=== PATIENT | male | born 1950 | race Caucasian/White ===

== ENCOUNTER 2016-07-04 10:39 | Inpatient (IN) | payer MEDICAID ==
--- NOTE | 2016-07-04 11:11 | EDPHY ---
H & P Stated Complaint: Sent from w/ ?cellulitis R cheek x 2wks - Personal History Current Tetanus Diphtheria and Acellular Pertussis (TDAP): Yes - Medical/Surgical History Hx Asthma: No Hx Chronic Respiratory Disease: No Hx Diabetes: No Hx Cardiac Disease: Yes Hx Renal Disease: No Hx Cirrhosis: No Hx Alcoholism: No Hx HIV/AIDS: No Hx Splenectomy or Spleen Trauma: No Other PMH: HTN, ortho surgeries - Social History Smoking Status: Heavy smoker Time Seen by Provider: 07/04/16 10:56 HPI/ROS: CHIEF COMPLAINT: Progressive right facial and orbital swelling HISTORY OF PRESENT ILLNESS: 65-year-old immunocompetent male with up-to-date tetanus was seen [facility] this morning for evaluation of progressive right periorbital erythema, induration, pain with extraocular movements, for the past 2 weeks. he has remote history of right facial bone ORIF secondary to skateboarding accident. Referred to the emergency department for further evaluation of of possible orbital cellulitis and likely admission. No corrective lens use history. Self-described baseline "poor vision". He denies : Trauma, fever, chills, nuchal rigidity, chest pain, dyspnea, flu-like symptoms, myalgias. No history of chronic/recurrent skin infection PRIMARY CARE PROVIDER: [facility] REVIEW OF SYSTEMS: A ten point review of systems was performed and is negative with the exception of the items mentioned in the HPI PAST MEDICAL & SURGICAL HISTORY: right facial bone ORIF 3 years ago [facility]. Hypertension. Hepatitis-C. Alcoholism. Tetanus up-to-date SOCIAL HISTORY:daily smoker PHYSICAL EXAM (Prior to examination, patient consented to physical exam, hands were washed and my usual and customary physical exam procedures followed) 1) GENERAL: , alert and oriented. Nontoxic-appearing . 2) HEAD: Normocephalic, atraumatic 3) HEENT: Pupils equal, round, reactive to light bilaterally. Right periorbital edema, erythema, induration noted with dried discharge. No proptosis. Positive pain with extraocular movements. No dysconjugate gaze . No facial crepitus. Right periorbital and right cheek erythema, induration, edema noted. Nasopharynx, oropharynx, clear, no lesions. Poor dentition. Tender to palpation right cheek. Ears bilaterally with normal tympanic membranes. 4) NECK: Full range of motion, no meningeal signs. 5) LUNGS: Clear auscultation bilaterally, no wheezes, no rhonchi, no retractions. 6) HEART: Regular rate and rhythm, no murmur, no heave, no gallop. 7) ABDOMEN: No guarding, no rebound, no focal tenderness, 8) MUSCULOSKELETAL: No peripheral edema or discoloration. 9) BACK: No CVA tenderness. 10) SKIN: No rash, no petechiae. 11) Psychiatric: Patient is oriented X 3, there is no agitation. DIFFERENTIAL DIAGNOSIS: in no particular include but limited to facial cellulitis, orbital cellulitis, periorbital cellulitis, abscess, necrotizing fasciitis (Haritha Greenberg) Constitutional: Initial Vital Signs Temperature (C) 36.4 C 07/04/16 10:41 Heart Rate 125 H 07/04/16 10:41 Respiratory Rate 18 07/04/16 10:41 Blood Pressure 128/93 H 07/04/16 10:41 O2 Sat (%) 96 07/04/16 10:41 O2 Delivery Mode Room Air Allergies/Adverse Reactions: No Known Allergies Allergy (Verified 07/04/16 10:41) Home Medications: Medication Instructions Recorded 2 Blood Pressure Meds ?Names 07/04/16 Medical Decision Making ED Course/Re-evaluation: 11:11 a.m.: Discussed case Dr. Valentin Alexander in the ER. Will obtain imaging studies and plan for likely admission 12:45 p.m.: Phone consultation with ENT Dr. Amy Higuera will consult and will plan on taking patient to the operating room this afternoon 12:55 p.m.: Phone consultation with hospitalist Kirsten, admit to Dr. Yaron Esqueda (Haritha Greenberg) I did not see this patient while he was in the emergency department. However his care was discussed with the PA while the patient was in the department. I agree with treatment plan and management (Valentin Alexander) - Data Points Laboratory Results: Laboratory Results 07/04/16 11:00 07/04/16 11:00 07/04/16 07/04/16 07/04/16 11:25 11:19 11:00 WBC RBC Hgb POC Hgb 15.6 gm/dL gm/dL (14.5-17.3) Hct POC Hct 46 % % (42.8-50.6) MCV MCH MCHC RDW Plt Count MPV Neut % (Auto) Lymph % (Auto) [place] % (Auto) Eos % (Auto) Baso % (Auto) Nucleat RBC Rel Count Absolute Neuts (auto) Absolute Lymphs (auto) Absolute Monos (auto) Absolute Eos (auto) Absolute Basos (auto) Absolute Nucleated RBC Immature Gran % Immature Gran # PT 13.8 SEC SEC (12.0-15.0) INR 1.07 (0.83-1.16) APTT 29.8 SEC SEC (23.0-38.0) VBG Lactic Acid 1.9 mmol/L mmol/L (0.7-2.1) POC Sodium 138 mEq/L mEq/L (134-144) Sodium POC Potassium 6.2 mEq/L H mEq/L (3.3-5.0) Potassium POC Chloride 101 mEq/L mEq/L (96-108) Chloride Carbon Dioxide Anion Gap POC BUN 26 mg/dL H mg/dL (7-23) BUN Creatinine POC Creatinine 0.8 mg/dL mg/dL (0.8-1.5) Estimated GFR Glucose POC Glucose 113 mg/dL H mg/dL (70-100) Calcium Total Bilirubin 07/04/16 07/04/16 11:00 11:00 WBC 14.08 10^3/uL H 10^3/uL (3.80-9.50) RBC 4.98 10^6/uL 10^6/uL (4.40-6.38) Hgb 16.4 g/dL g/dL (13.7-17.5) POC Hgb Hct 47.8 % % (40.0-51.0) POC Hct MCV 96.0 fL fL (81.5-99.8) MCH 32.9 pg pg (27.9-34.1) MCHC 34.3 g/dL g/dL (32.4-36.7) RDW 14.7 % % (11.5-15.2) Plt Count 267 10^3/uL 10^3/uL (150-400) MPV 9.5 fL fL (8.7-11.7) Neut % (Auto) 85.0 % H % (39.3-74.2) Lymph % (Auto) 7.9 % L % (15.0-45.0) [place] % (Auto) 6.3 % % (4.5-13.0) Eos % (Auto) 0.0 % L % (0.6-7.6) Baso % (Auto) 0.3 % % (0.3-1.7) Nucleat RBC Rel Count 0.0 % % (0.0-0.2) Absolute Neuts (auto) 11.98 10^3/uL H 10^3/uL (1.70-6.50) Absolute Lymphs (auto) 1.11 10^3/uL 10^3/uL (1.00-3.00) Absolute Monos (auto) 0.88 10^3/uL H 10^3/uL (0.30-0.80) Absolute Eos (auto) 0.00 10^3/uL L 10^3/uL (0.03-0.40) Absolute Basos (auto) 0.04 10^3/uL 10^3/uL (0.02-0.10) Absolute Nucleated RBC 0.00 10^3/uL 10^3/uL (0-0.01) Immature Gran % 0.5 % % (0.0-1.1) Immature Gran # 0.07 10^3/uL 10^3/uL (0.00-0.10) PT INR APTT VBG Lactic Acid POC Sodium Sodium 143 mEq/L mEq/L (134-144) POC Potassium Potassium 4.2 mEq/L mEq/L (3.5-5.2) POC Chloride Chloride 102 mEq/L mEq/L (97-110) Carbon Dioxide 22 mEq/l mEq/l (22-31) Anion Gap 19 mEq/L H mEq/L (8-16) POC BUN BUN 17 mg/dL mg/dL (7-23) Creatinine 0.9 mg/dL mg/dL (0.7-1.3) POC Creatinine Estimated GFR > 60 Glucose 116 mg/dL H mg/dL (70-100) POC Glucose Calcium 9.8 mg/dL mg/dL (8.5-10.4) Total Bilirubin 1.5 mg/dL H mg/dL (0.1-1.4) Medications Given: Discontinued Medications Vancomycin/Sodium Chloride (Vancomycin 1 Gm (Premix)) 250 mls @ 250 mls/hr IV EDNOW ONE PRN Reason: Protocol Stop: 07/04/16 12:04 Last Admin: 07/04/16 11:35 Dose: 250 mls Ampicillin Sodium/Sulbactam (Sodium 3 gm/ Sodium Chloride) 100 mls @ 200 mls/ hr IV EDNOW ONE PRN Reason: Protocol Stop: 07/04/16 13:32 Last Admin: 07/04/16 13:22 Dose: 100 mls Sodium Chloride (Ns *For Sepsis Order Set Only*) 1,905 ml 30 ml/kg (1905 ml) IV EDNOW ONE Stop: 07/04/16 11:19 Last Admin: 07/04/16 11:35 Dose: 1,905 ml Point of Care Test Results: 07/04/16 11:19 POC Sodium 138 POC Potassium 6.2 H POC Chloride 101 POC BUN 26 H POC Creatinine 0.8 POC Glucose 113 H Departure - Departure Disposition: [facility] Acute Clinical Impression: Right facial cellulitis, Multiple facial abscess Condition: Fair
[2016-07-04 11:16] LABS: % IMMATURE GRANULYOCYTES 0.5 % (0.0-1.1); ABSOLUTE IMMATURE GRANULOCYTES 0.07 10^3/uL (0.00-0.10); ADD DIFF? NO; ADD MORPH? NO; ADD SCAN? NO; ATYPICAL LYMPHOCYTE FLAG 10 (0-99); FRAGMENT RBC FLAG 0 (0-99); HEMATOCRIT 47.8 % (40.0-51.0); HEMOGLOBIN 16.4 g/dL (13.7-17.5); LEFT SHIFT FLG 10 (0-99); LIPEMIA HEMOLYSIS FLAG 90 (0-99); MEAN CELL HEMOGLOBIN 32.9 pg (27.9-34.1); MEAN CELL HEMOGLOBIN CONCENTR. 34.3 g/dL (32.4-36.7); MEAN PLATELET VOLUME 9.5 fL (8.7-11.7); PLATELET CLUMPS FLAG 20 (0-99); PLATELET COUNT 267 10^3/uL (150-400); RED BLOOD CELL COUNT 4.98 10^6/uL (4.40-6.38); RED CELL DISTRIBUTION WIDTH 14.7 % (11.5-15.2)
[2016-07-04] MEDS: VANCOMYCIN HCL/NORMAL SALINE 250 ML IV ONE ×2 (11:17→11:35)
[2016-07-04] MEDS ORDERED: NS 1,000 ML BAG *FOR SEPSIS ORDER SET ONLY IV ONE (11:18)
[2016-07-04 11:25] LABS: ANION GAP 19 mEq/L (8-16); CALCIUM 9.8 mg/dL (8.5-10.4); CARBON DIOXIDE 22 mEq/l (22-31); CHLORIDE 102 mEq/L (97-110); CREATININE 0.9 mg/dL (0.7-1.3); GLOMERULAR FILTRATION RATE > 60; GLUCOSE 116 mg/dL (70-100); POTASSIUM 4.2 mEq/L (3.5-5.2); SODIUM 143 mEq/L (134-144)
[2016-07-04 11:27] LABS: APTT 29.8 SEC (23.0-38.0); INR 1.07 (0.83-1.16); PROTIME(PATIENT) 13.8 SEC (12.0-15.0)
[2016-07-04] MEDS ORDERED: IOPAMIDOL (ISOVUE-300) 100 ML BTL IV ONE (11:46)
[2016-07-04 11:55] LABS: BILIRUBIN,TOTAL 1.5 mg/dL (0.1-1.4)
[2016-07-04] MEDS ORDERED: AMPICILLIN/SULBACTAM 3 GM in NS 100 ML IV ONE (13:03)
[2016-07-04] MEDS ORDERED: ZOLPIDEM TARTRATE 5 MG TAB PO PRN (13:45)
[2016-07-04] MEDS ORDERED: ONDANSETRON 4 MG/2 ML VIAL IVP PRN (13:45)
[2016-07-04] MEDS ORDERED: ACETAMINOPHEN 325 MG TAB PO PRN (13:45)
--- NOTE | 2016-07-04 14:11 | GCON ---
[f rep st] CONSULTATION DATE OF CONSULTATION: 07/04/2016 CHIEF COMPLAINT: Facial swelling. HISTORY OF PRESENT ILLNESS: This is a 65-year-old man with a 2-week history of right-sided facial swelling that has progressively gotten worse and more painful. He was seen at [facility] today, and they referred him over to the ER for a possible abscess. A CT scan was done, which showed a large right-sided facial abscess that centered around some prior hardware that was done for what looks like a ZMC fracture in the past, and I was called for a consultation. The patient states that he has not had anything to eat or drink since last night. He has had increasing pain for 2 weeks, where it really got bad in the past 2 days. He has had no obvious fevers. He does complain that it hurts when he opens his mouth and it hurts when he chews. He states that the hardware was placed a couple years ago at [facility] after he fell off a skateboard and had some facial fractures. He denies any vision changes, diplopia, or blurry vision at this point. He denies any shortness of breath or dysphagia. He does complain of right-sided facial pain, and he does complain of some pain with extraocular movements, especially on the right side. He does describe at baseline he has poor vision. He denies any new trauma, fevers, neck stiffness, chest pain, myalgias, or other problems. PAST MEDICAL HISTORY: Significant for high blood pressure, hepatitis C, and alcoholism. SOCIAL HISTORY: He is a daily smoker, 1 pack per day. REVIEW OF SYSTEMS: Positive for the above and negative for the other things noted in the review of systems. PHYSICAL EXAM: GENERAL: He is awake, alert, in no apparent distress. VITAL SIGNS: Stable, afebrile. HEENT: Ear canals are normal with no obstruction. TMs are intact. No middle ear effusion. FACE: Right side of the face is significantly swollen, tender, and indurated. He does have some significant swelling and exquisite tenderness with opening the mouth and palpation of the gingivobuccal sulcus in this region. He does have poor dentition mandible, no maxillary dentition. Tongue is mobile and midline. Palate elevates symmetrically. Oropharynx is clear. Mandible feels stable with no significant pain or swelling on palpation. Neck shows no overt lymphadenopathy or masses. Pupils are equal, round, and reactive to light. Extraocular movements are intact RESP: Breathing without any difficulty, no distress, and he is not on oxygen. clinic office coordinator 2-12 grossly intact LABORATORY AND X-RAY FINDINGS: CT scan was reviewed, and this shows a very large facial abscess on the right side, at least 4 cm in width that is centered around some facial hardware around the ZM complex. He also has a completely opacified right maxillary sinus with edema and fluid filling this area, as well as some anterior ethmoid cells that are opacified as well. Labs show a white count of 14. Platelets are stable and normal. PT and INR are normal. ASSESSMENT/PLAN: This is a patient with previous ORIF of a right ZMC fracture with an abscess now likely from the hardware. I discussed with him that he needs an I and D of this area and this would be easiest to do in the operating room so we can wash it out aggressively. I will be taking him to the OR now. I will possibly remove the hardward as well vs. waiting until infection clears. I'll have to see what it looks like intraoperatively. He has already gotten some vancomycin, and I would like to also add Unasyn as well. The risks of the procedure and informed consent was obtainened. He agrees and understands and is happy with the plan. /[id number]/MODL MTDD
[2016-07-04] MEDS ORDERED: MIDAZOLAM 2 MG/2 ML VIAL ONE (14:22)
[2016-07-04] MEDS ORDERED: PROPOFOL 200 MG/20 ML VIAL ONE (14:24)
[2016-07-04] MEDS ORDERED: LIDOCAINE 2% 5 ML SDV ONE (14:24)
[2016-07-04] MEDS ORDERED: fentaNYL 100 MCG/2 ML INJ ONE ×4 (14:24→15:51)
[2016-07-04] MEDS ORDERED: DEXAMETHASONE 4 MG/ML VIAL ONE (14:24)
[2016-07-04] MEDS ORDERED: ROCURONIUM 50 MG/5 ML VIAL ONE (14:25)
[2016-07-04] MEDS ORDERED: SUCCINYLCHOLINE CHLORIDE*ANESTHESIA ONLY*200 MG/10 ML SYR IVP ONE (14:25)
[2016-07-04] MEDS ORDERED: LIDO/EPI 1% **for epidural** 30 ML SDV ONE (14:49)
[2016-07-04] MEDS ORDERED: LIDO/EPI 1% **Not for Epidural 20 ML MDV ONE (14:50)
[2016-07-04] MEDS ORDERED: PHENYLEPHRINE HCL 100 MCG/ML SYR ONE (14:51)
[2016-07-04] MEDS ORDERED: METOPROLOL TARTRATE 5 MG/5 ML INJ ONE (15:04)
--- NOTE | 2016-07-04 15:42 | POSTOPPROG ---
Post Op Note Date of Operation: 07/04/16 Surgeon: Amy Higuera Anesthesiologist: isai campbell Anesthesia: GET(General Endotracheal) Pre-op Diagnosis: R facial abscess, previous ORIF Post-op Diagnosis: r facial abscess, loose hardware Procedure: I&D R facial abscess, removal of ZMC hardware Findings: large abscess pocket, ~ 20 cc pus, loose hardware, 4 screws, 1 plate remove Inf/Abcess present in the surg proc area at time of surgery?: Yes Depth: Deep Incisional (Fascial) EBL: Minimal Complications: none apparent Specimen(s): cx taken
--- NOTE | 2016-07-04 16:28 | PDGENHP ---
History and Physical History and Physical: HISTORY AND PHYSICAL CC: Right facial pain and swelling HISTORY: This patient was sent in from the [facility] due to concern for right facial abscess. He complains of 2-3 days of increasing swelling and pain over the right maxillary area and pain with movement of his eyes. He has no decrease in vision. He has no fevers. There is pain when he chews orders swallows food. He does describe some shivering. A CT scan was done in the ER. The patient does give a history of having facial injury with a right zygomatic fracture 2 years ago resulting in placement of hardware at [facility]. Until now he has had no problems related to that injury and surgery. The CT scan today does show evidence of significant abscess in the deep soft tissue planes but no definite osteomyelitis. The hardware is adjacent to the abscess cavity. There is evidence of loosening. Patient has now been taken to the operating room by Dr. Mccoy and he has had incision and drainage with removal of 20 cc of purulent material as well as removal of 4 screws and a plate. I am seeing the patient in the post anesthesia recovery room. He is now awake. He has some complain still of pain. Has no nausea, shortness of breath, angina, palpitations, neurologic symptoms are other abnormalities. Importantly the patient states that he still drinks alcohol heavily and currently was drinking 750 mL of liquor per day though stopped 2 or 3 days ago due to pain with drinking this. ROS: A comprehensive 10 system review revealed no other significant findings PAST MEDICAL HISTORY: Alcoholism Cavitary pneumonia Hepatitis-C, chronic FAMILY MEDICAL HISTORY: A mother and sister in a house fire. Father still alive. SOCIAL HISTORY: Continued heavy alcohol use, continued tobacco use, no street drugs or marijuana MEDICATIONS: The patients list has not yet been reconciled by our clinical pharmacist in the EMR. PHYSICAL EXAMINATION: Vital Signs: Some hypertension in the operating room and initially in PACU, otherwise stable without fever Roll Icer: Sinus rhythm Examination: General: alert, oriented, good mentation, relaxed Skin: warm, dry, good color, no rash HEENT: Dressing over his surgical site, otherwise normal Neck: no mass or jvd Resps: relaxed Lungs: Severely diminished but clear breath sounds Heart: regular, no murmur Abdomen: soft, nondistended, nontender, +BS, no mass Upper Extremities: normal Lower Extremities: no edema, warm No Bleeding or bruising Neurologic: normal speech/language, normal corporate buyer, no focal weakness, no tremor IV site: looks normal LABORATORY DATA: White blood cell count elevated 14,000 Anion gap elevated at 19 but does not have an elevated lactate other laboratory data stable RADIOLOGY STUDIES: CT scan of facial structures shows obvious large abscess in the right pre maxillary facial area with old hardware present over the zygoma ASSESSMENT: -deep facial abscess involving infection of hardware from previous zygomatic fracture, now status post incision and drainage and removal of hardware -chronic alcoholism with high risk of withdrawal -suspect COPD, stable PLANS: -admission to hospital -await culture results -continue empiric antibiotics which were started in the ER -wound care per ENT -CIWA protocol -DVT prophylaxis I have reviewed the patient's case in detail with Dr. Valentin Alexander I have reviewed the patient's past medical records as part of this assessment, including records from previous hospital admissions here
[2016-07-04] MEDS ORDERED: SODIUM CL NASAL 45 ML BTL EACHNARE PRN (16:43)
--- NOTE | 2016-07-04 16:43 | SOAPPROG ---
SOAP Progress Note Assessment/Plan: Assessment: PO R I&D facial abscess and hardware removal. Had opacification of R max sinus as well and purulence draining into RESIDENT CARE ASSOCIATE. Rec IV abx, Unasyn and Vanc, vs. Clinda. Could consider talking with ID as well. Cx taken. Continue broad spectrum abx until cultured out. Will start saline mist in nose and nasal steroid spray. Call with questions Plan: 07/04/16 16:41 Subjective: Less pain and swelling over R cheek po. distillery worker general Objective: avfss no sig bleeding, less ttp over cheek still swollen, no evidence of hematoma Vital Signs Temp Pulse Resp BP Pulse Ox 37.5 C 88 18 145/99 H 95 07/04/16 12:59 07/04/16 13:30 07/04/16 13:30 07/04/16 13:30 07/04/16 13:30 07/03/16 07/04/16 07/05/16 05:59 05:59 05:59 Intake Total 700 Balance 700 PT 13.8 SEC (12.0-15.0) 07/04/16 11:00 INR 1.07 (0.83-1.16) 07/04/16 11:00 ICD10 Worksheet Patient Problems: Problems Problem Status Onset Aspiration pneumonia of both lungs Acute Empyema of right pleural space Acute Pneumonia Acute
[2016-07-04] MEDS ORDERED: LORazepam 2 MG/ML INJ IVP ONE (17:30)
[2016-07-04] MEDS ORDERED: LORazepam 2 MG/ML INJ IVP PRN (17:30)
[2016-07-04] MEDS ORDERED: LORazepam 1 MG TAB PO ONE (17:30)
[2016-07-04] MEDS ORDERED: OXYCODONE/APAP 5/325 TAB PO PRN (17:32)
[2016-07-04] MEDS: NS 1,000 ML IV SCH (18:16)
[2016-07-04] MEDS: FLUTICASONE NASAL 120 SPRAYS/16 GM MDI EACHNARE SCH (18:17)
[2016-07-04] MEDS: LISINOPRIL 40 MG TAB PO SCH (18:17)
[2016-07-04] MEDS: LORazepam 1 MG TAB PO PRN (21:00)
[2016-07-04] MEDS: CHLORHEXIDINE GLUCONATE 15 ML UDL PO SCH (21:34)
[2016-07-05] MEDS: CHLORHEXIDINE GLUCONATE 15 ML UDL PO SCH ×4 (03:55→23:06)
[2016-07-05 05:38] LABS: % IMMATURE GRANULYOCYTES 0.6 % (0.0-1.1); ABSOLUTE IMMATURE GRANULOCYTES 0.06 10^3/uL (0.00-0.10); HEMATOCRIT 38.2 % (40.0-51.0); HEMOGLOBIN 12.9 g/dL (13.7-17.5); MEAN CELL HEMOGLOBIN CONCENTR. 33.8 g/dL (32.4-36.7); MEAN CELL VOLUME 97.7 fL (81.5-99.8); PLATELET COUNT 206 10^3/uL (150-400); RED BLOOD CELL COUNT 3.91 10^6/uL (4.40-6.38); RED CELL DISTRIBUTION WIDTH 14.8 % (11.5-15.2)
[2016-07-05 05:39] LABS: ADD DIFF? NO; ADD MORPH? NO; ADD SCAN? NO; ATYPICAL LYMPHOCYTE FLAG 20 (0-99); FRAGMENT RBC FLAG 0 (0-99); LEFT SHIFT FLG 20 (0-99); LIPEMIA HEMOLYSIS FLAG 90 (0-99); PLATELET CLUMPS FLAG 0 (0-99)
[2016-07-05 05:53] LABS: ANION GAP 12 mEq/L (8-16); CALCIUM 8.9 mg/dL (8.5-10.4); CARBON DIOXIDE 22 mEq/l (22-31); CHLORIDE 106 mEq/L (97-110); CREATININE 0.6 mg/dL (0.7-1.3); GLOMERULAR FILTRATION RATE > 60; GLUCOSE 110 mg/dL (70-100); MAGNESIUM 1.7 mg/dL (1.6-2.3); POTASSIUM 4.4 mEq/L (3.5-5.2); SODIUM 140 mEq/L (134-144)
--- NOTE | 2016-07-05 10:34 | HOSPPROG ---
Hospitalist Progress Note Assessment/Plan: #Deep facial abscess with cellulitis: hardware removed. WBC improved with Vanc/ Unasyn. -gram statin with gram + cocci/rods, culture pending -Peridex TID for 2 weeks, nasal spray -soft diet x 2 weeks #Alcohol abuse: cont CIWA #Alcohol abuse: counseled on cessation #Normocytic anemia: no e/o bleeding #Leukocytosis: improved with IV abx #Tobacco abuse: nicotine patch #Diet: full liquid today #Disp: cont IV abx, await culture data # Subjective: pain in right face improved Objective: Vital Signs Temp Pulse Resp BP Pulse Ox 36.6 C 75 18 136/86 H 95 07/05/16 08:06 07/05/16 08:06 07/05/16 08:06 07/05/16 08:06 07/05/16 08:06 Microbiology 07/04/16 15:05 Gram Stain - Final Head - Eswab Laboratory Results 07/05/16 04:37 07/05/16 04:37 07/04/16 07/05/16 07/06/16 05:59 05:59 05:59 Intake Total 2857 Output Total 25 Balance 2832 PT 13.8 SEC (12.0-15.0) 07/04/16 11:00 INR 1.07 (0.83-1.16) 07/04/16 11:00 - Physical Exam Constitutional: no apparent distress Eyes: PERRL Ears, Nose, Mouth, Throat: other (right cheek swelling/erythema, mild TTP. No cervical LAD. Buccal incision intact) Cardiovascular: regular rate and rhythym Respiratory: no respiratory distress Gastrointestinal: normoactive bowel sounds, soft, non-tender abdomen Genitourinary: no bladder fullness Skin: warm Musculoskeletal: full muscle strength Neurologic: AAOx3, CN II-XII Intact, other (mild tongue fasciculation) ICD10 Worksheet Patient Problems: Problems Problem Status Onset Aspiration pneumonia of both lungs Acute Empyema of right pleural space Acute Pneumonia Acute
--- NOTE | 2016-07-05 11:13 | SOAPPROG ---
SOAP Progress Note Assessment/Plan: Assessment: POD 1 I&D R facial abscess with removal of hardware. Looks good, improved. Can start FLD to soft diet. needs to stay on soft diet x 2 weeks. Needs to continue peridex TID for 2 weeks. Continue broad spectrum IV abx for another 24 hrs or so or until speciates out, likely can dc from my standpoint tomorrow if still improving. continue nasal sprays as an outpatient. WBC down to 9 from 14. Call with questions. He can f/u with me in the office in 2 weeks. 07/04/16 16:41 07/05/16 11:09 07/05/16 11:12 Subjective: Pt doing much better. Less pain and swelling. hasn't really started eating. No sig purulence draining that he can tell Gram stain showing 4+ g + cocci and 1+ g+ rods Objective: AFVSS RA improved redness and swelling over R cheek/zygoma. minimal TTP Incision in R gingivobuccal sulcus intact, minimal bloody ooze from it OP patent Vital Signs Temp Pulse Resp BP Pulse Ox 36.6 C 75 18 136/86 H 95 07/05/16 08:06 07/05/16 08:06 07/05/16 08:06 07/05/16 08:06 07/05/16 08:06 Microbiology 07/04/16 15:05 Gram Stain - Final Head - Eswab Laboratory Results 07/05/16 04:37 07/05/16 04:37 07/04/16 07/05/16 07/06/16 05:59 05:59 05:59 Intake Total 2857 Output Total 25 Balance 2832 PT 13.8 SEC (12.0-15.0) 07/04/16 11:00 INR 1.07 (0.83-1.16) 07/04/16 11:00 ICD10 Worksheet Patient Problems: Problems Problem Status Onset Aspiration pneumonia of both lungs Acute Empyema of right pleural space Acute Pneumonia Acute
[2016-07-05] MEDS: MULTIVITAMINS 1 EACH TAB PO SCH (11:29)
[2016-07-05] MEDS: LISINOPRIL 40 MG TAB PO SCH (11:30)
[2016-07-05] MEDS: NS 1,000 ML IV SCH (12:49)
[2016-07-05] MEDS: ENOXAPARIN 40 MG/0.4 ML SYR SC SCH (12:49)
[2016-07-05] MEDS: NICOTINE 21 MG/24 HR PATCH TD SCH (14:09)
[2016-07-05] MEDS: AMPICILLIN/SULBACTAM 3 GM in NS 100 ML IV SCH ×3 (15:48→23:06)
[2016-07-05] MEDS: VANCOMYCIN HCL/NORMAL SALINE 250 ML IV SCH (16:30)
[2016-07-05] MEDS: FLUTICASONE NASAL 120 SPRAYS/16 GM MDI EACHNARE SCH (16:57)
[2016-07-05] MEDS: LORazepam 1 MG TAB PO PRN (23:06)
[2016-07-06] MEDS: VANCOMYCIN HCL/NORMAL SALINE 250 ML IV SCH (02:51)
[2016-07-06 05:28] LABS: ANION GAP 8 mEq/L (8-16); CALCIUM 8.3 mg/dL (8.5-10.4); CARBON DIOXIDE 25 mEq/l (22-31); CHLORIDE 108 mEq/L (97-110); CREATININE 0.5 mg/dL (0.7-1.3); GLOMERULAR FILTRATION RATE > 60; GLUCOSE 91 mg/dL (70-100); MAGNESIUM 1.6 mg/dL (1.6-2.3); POTASSIUM 3.7 mEq/L (3.5-5.2); SODIUM 141 mEq/L (134-144)
[2016-07-06] MEDS: AMPICILLIN/SULBACTAM 3 GM in NS 100 ML IV SCH ×3 (06:06→18:41)
[2016-07-06] MEDS: NS 1,000 ML IV SCH ×2 (06:07→21:33)
--- NOTE | 2016-07-06 08:43 | HOSPPROG ---
Hospitalist Progress Note Assessment/Plan: #Deep facial abscess with cellulitis: due to hardware prior ZMC. s/p I/D and hardware removal 07/04. Cont IV Unasyn. -gram statin with gram + cocci/rods, culture pending -Peridex TID for 2 weeks, nasal spray -soft diet x 2 weeks -spoke with ID and instead of orals, would rec treating like osteo with prolonged IV abx. Patient amendable; had PICC in past. d/w case management for home care #Alcohol abuse: cont CIWA #Alcohol abuse: counseled on cessation #Normocytic anemia: no e/o bleeding #Leukocytosis: improved with IV abx #Tobacco abuse: nicotine patch #Diet: full liquid today #Disp: cont IV abx, await culture data for home therapy # Subjective: pain/swelling improved Objective: Vital Signs Temp Pulse Resp BP Pulse Ox 36.3 C 89 16 153/99 H 95 07/06/16 08:00 07/06/16 08:00 07/06/16 08:00 07/06/16 08:00 07/06/16 08:00 Microbiology 07/04/16 15:05 Gram Stain - Final Head - Eswab Laboratory Results 07/05/16 04:37 07/06/16 04:45 07/05/16 07/06/16 07/07/16 05:59 05:59 05:59 Intake Total 2857 700 1450 Output Total 25 1250 425 Balance 2832 -550 1025 PT 13.8 SEC (12.0-15.0) 07/04/16 11:00 INR 1.07 (0.83-1.16) 07/04/16 11:00 - Physical Exam Constitutional: no apparent distress Eyes: PERRL Ears, Nose, Mouth, Throat: moist mucous membranes, other (right cheek swelling improved. Min TTP. incision intact) Cardiovascular: regular rate and rhythym Respiratory: no respiratory distress Gastrointestinal: normoactive bowel sounds Genitourinary: no bladder fullness Skin: warm Musculoskeletal: full muscle strength Neurologic: AAOx3 ICD10 Worksheet Patient Problems: Problems Problem Status Onset Aspiration pneumonia of both lungs Acute Empyema of right pleural space Acute Pneumonia Acute
[2016-07-06] MEDS: MULTIVITAMINS 1 EACH TAB PO SCH (10:06)
[2016-07-06] MEDS: CHLORHEXIDINE GLUCONATE 15 ML UDL PO SCH ×3 (10:07→21:29)
[2016-07-06] MEDS: LISINOPRIL 40 MG TAB PO SCH (10:07)
[2016-07-06] MEDS: FLUTICASONE NASAL 120 SPRAYS/16 GM MDI EACHNARE SCH (10:08)
[2016-07-06] MEDS: ENOXAPARIN 40 MG/0.4 ML SYR SC SCH (10:08)
[2016-07-06] MEDS: NICOTINE 21 MG/24 HR PATCH TD SCH (10:09)
--- NOTE | 2016-07-06 12:32 | GOP ---
[f rep st] OPERATIVE REPORT DATE OF OPERATION: 07/04/2016 SURGEON: Amy Higuera MD ANESTHESIA: General. PREOPERATIVE DIAGNOSIS: 1. Right facial abscess. 2. History of previous zygomaticomaxillary complex fracture and repair on the right. 3. Loose hardware. POSTOPERATIVE DIAGNOSIS: 1. Right facial abscess. 2. History of previous zygomaticomaxillary complex fracture and repair on the right. 3. Loose hardware. PROCEDURE PERFORMED: 1. Incision and drainage of right facial abscess. 2. Removal of right ZMC hardware. FINDINGS: The patient is found have a very large abscess pocket overlying the zygoma and maxilla. This was drained of about 20 cc of acute purulent material , and cultures were taken. I was able to see the inferior screw in the bottom part of the plate on this area. The screws noted to be loose, and it was felt that the hardware needed to be removed, as this was likely the source of the infection. ESTIMATED BLOOD LOSS: Minimal. DESCRIPTION OF PROCEDURE: The patient was first seen in the preoperative area. Informed consent was obtained. He was then brought back to the operating room , where Anesthesia sedated and intubated him. The bed was turned 90 degrees. He was prepped and draped in a normal fashion. Peridex was used to clean the oral cavity out copiously, and then cleared. At this point, he had significant fullness and fluctuance just over the cheek on the right and on the undersurface of the upper lip. At this point, a right gingival buccal incision was made with about a 2 mm cuff of tissue to be able to suture closed. This was taken down through the mucosa, muscular, and then down directly onto the bone. A curved hemostat was used to probe this pocket with significant amount of purulence that was expressed. Cultures were taken x2. The wound incision was widened a little bit, and my finger was able to be used to probe the pocket and break up any loculations. After the majority of the purulence was removed, a significant amount of saline was used to irrigate out the pocket copiously. At this point, I was able to visualize the inferior portion of the ZMC complex plate, as well as the screw. The screw was noted to be somewhat loose, and since this was felt to be the source of the infection, it was felt that the hardware needed to be removed. So, at this point, the periosteum was elevated off of the underlying bone, and gentle retraction was used to be able to visualize the top part of the plate, which was a Y-shaped plate coming from the zygoma down onto the maxilla. A screwdriver was used to remove the inferior 2 screws. These were sent off the field. The same thing was used to remove the 2 screws in the Y confirmation up on the zygoma. These were removed without difficulty, and sent off to field, and then the plate was removed without difficulty. The underlying bone was noted to be intact. The wound was copiously irrigated out again with normal saline. Then once I was confident that there was no more purulence or significant bleeding, the gingivobuccal incision was loosely sutured back into place using a 3-0 Vicryl in an interrupted fashion. Once this was done, Peridex was used again to irrigate out the oral cavity and clean the wound. This was suctioned clear. The patient was turned back over to Anesthesia, where he was awoke and extubated, and taken to PACU in stable condition. There were no complications, and he tolerated the procedure well. SURGEON: Amy Higuera MD. COMPLICATIONS: None. /[id number]/MODL MTDD
[2016-07-06] MEDS ORDERED: ALTEPLASE 2 MG VIAL IVP PRN (14:13)
--- NOTE | 2016-07-06 20:08 | GCON ---
[f rep st] CONSULTATION INFECTIOUS DISEASES CONSULTATION DATE OF CONSULTATION: 07/06/2016 REFERRING PHYSICIAN: Karina Kelley MD SOURCE OF CONSULTATION: REASON FOR CONSULTATION: Right facial abscess status post hardware removal. HISTORY OF PRESENT ILLNESS: The patient is a 65-year-old male with a past medical history of right zygomatic fracture which he states occurred approximately 6 years ago requiring placement of hardwar e who I am asked to see in consultation for right facial abscess with abscess cavity associated with hardware which was removed. The patient described having several days of swelling over the right s nichole of his face which was tender with slight warmth and erythema. This limited his ability to fully open his mouth or eat. He did not have fever but did describe some chills and night sweats. Evalu ation at the time of presentation revealed a right-sided facial abscess and CT scan of the face sugg ested this was in association with his previous hardware. He was taken to the operating room for in cision and drainage of the abscess and found to have approximately 20 mL of purulent material with a ssociated loose hardware in communication with the purulence resulting in his hardware being removed . Cultures from the operative specimen are currently growing Streptococcus intermedius but also yaima wed gram-positive rods on Gram stain. The patient feels significantly improved post incision and dr akhtar. He has been receiving antibiotic therapy with vancomycin and Unasyn with the vancomycin garland ng discontinued earlier today. Given the above findings, I am now asked to assist in his ongoing ma nagement. PAST MEDICAL HISTORY: Peptostreptococcal pneumonia/empyema, history of hepatitis C positive antibod y with negative viral load, alcoholism, tobacco abuse, facial fracture as above. PAST SURGICAL HISTORY: Lumbar spine surgery, facial fracture fixation as above. CURRENT MEDICATIONS: Unasyn 3 g IV q.6 hours, Norvasc 10 mg p.o. daily, Peridex 15 mL p.o. t.i.d., Lovenox 40 mg subcu daily, Flonase 2 sprays each nostril daily, lisinopril 40 mg p.o. daily, multivi tamin p.o. daily, Nicoderm CQ 21 mg patch applied daily, thiamin 100 mg p.o. daily. ALLERGIES: No known drug allergies. SOCIAL HISTORY: Patient smokes 1 pack per day. He drinks 750 mL of vodka frequently; no drug use. FAMILY HISTORY: Brother of what is described as endocarditis. REVIEW OF SYSTEMS: Outside of that noted in the HPI, the remainder of 10 system review was unremark able. PHYSICAL EXAMINATION: VITAL SIGNS: Temperature 36.4, heart rate 72, respiratory rate 16, blood pre ssure 128/87, oxygen saturation 98% on room air. GENERAL: Patient is well nourished, well develope d, no acute distress. He appears nontoxic. HEENT: There is no scleral icterus, conjunctival injec tion or conjunctival petechiae. The oropharynx shows few remaining residual teeth which are in poor repair; incision is present intraorally. There is no erythema or tenderness over the right side of the face. The patient has some limitation in range of motion of his jaw but this is improved. The re is no nasal discharge. NECK: Supple without lymphadenopathy or palpable thyromegaly. CHEST: C lear to auscultation bilaterally without adventitious sounds. The respiratory effort is normal. CA RDIOVASCULAR: There is regular rate and rhythm without murmurs, gallops or rubs. ABDOMEN: Soft, n ontender, nondistended. There is no palpable organomegaly. Bowel sounds are present. MUSCULOSKELE CLAUDIA: There is no cyanosis, clubbing or edema. SKIN: There are no stigmata of endocarditis. No ra shes are noted. Skin is warm, dry to touch. NEUROLOGIC: Patient is alert and interacts appropriat enedelia with the examiner. Cranial nerves 2-12 are grossly intact. Sensation is grossly intact. LYMPH ATICS: No cervical or supraclavicular nodes palpable. LABORATORY DATA: White blood cell count 9.7, hematocrit 38.2, platelets 206, neutrophils 87%. Seru m creatinine is 0.5, blood cultures x2 sets are negative. Gram stain of the operative specimen show 4+ gram-positive cocci and 1+ gram-positive rods with growth of 4+ Streptococcus intermedius. CT s can of the face as outlined above which was reviewed and interpreted by me today. IMPRESSION: Right facial abscess with communication to indwelling hardware which has now been drain ed with complete hardware removal: Based on the hardware involvement, this will need to be treated as if osteomyelitis present. Cultures are currently showing growth of Streptococcus intermedius; gr am-positive rods on Gram stain could potentially represent Actinomyces and will require additional f ollowup of cultures. Anticipate a 6-week course of IV antibiotic for the above problem. RECOMMENDATIONS: 1. Agree with continued Unasyn pending further culture data. 2. If no other organisms isolated, likely will transition to ertapenem for outpatient daily adminis tration. 3. Will need case management assistance regarding outpatient IV antibiotic therapy which is complic ated in the setting of ongoing alcoholism. Thank you for this consultation. We will continue to follow the patient with you. /[id number]/MODL
[2016-07-07] MEDS: AMPICILLIN/SULBACTAM 3 GM in NS 100 ML IV SCH ×2 (00:14→04:58)
[2016-07-07] MEDS: LORazepam 1 MG TAB PO PRN (00:20)
[2016-07-07 05:11] LABS: HEMATOCRIT 39.1 % (40.0-51.0); HEMOGLOBIN 13.4 g/dL (13.7-17.5); MEAN CELL HEMOGLOBIN 33.2 pg (27.9-34.1); MEAN CELL HEMOGLOBIN CONCENTR. 34.3 g/dL (32.4-36.7); MEAN CELL VOLUME 96.8 fL (81.5-99.8); RED BLOOD CELL COUNT 4.04 10^6/uL (4.40-6.38); RED CELL DISTRIBUTION WIDTH 14.3 % (11.5-15.2)
[2016-07-07 05:28] LABS: ANION GAP 8 mEq/L (8-16); CALCIUM 8.7 mg/dL (8.5-10.4); CARBON DIOXIDE 26 mEq/l (22-31); CHLORIDE 108 mEq/L (97-110); CREATININE 0.6 mg/dL (0.7-1.3); GLOMERULAR FILTRATION RATE > 60; GLUCOSE 92 mg/dL (70-100); POTASSIUM 4.2 mEq/L (3.5-5.2); SODIUM 142 mEq/L (134-144)
[2016-07-07 08:19] VITALS: RESP 18; TEMP 98.3
[2016-07-07] MEDS ORDERED: THIAMINE HCL 100 MG TAB PO SCH (09:00)
[2016-07-07] MEDS: LISINOPRIL 40 MG TAB PO SCH (09:16)
[2016-07-07] MEDS: CHLORHEXIDINE GLUCONATE 15 ML UDL PO SCH (09:16)
[2016-07-07] MEDS: NICOTINE 21 MG/24 HR PATCH TD SCH (09:16)
[2016-07-07] MEDS: MULTIVITAMINS 1 EACH TAB PO SCH (09:17)
[2016-07-07] MEDS: ENOXAPARIN 40 MG/0.4 ML SYR SC SCH (09:17)
[2016-07-07] MEDS: FLUTICASONE NASAL 120 SPRAYS/16 GM MDI EACHNARE SCH (09:19)
--- NOTE | 2016-07-07 10:36 | PDIAF ---
- Diagnosis Diagnosis: Facial abscess/mandibular hardware infection Code Status: Full Code - Medication Management Discharge Medications: Medications to Continue on Transfer Lisinopril [Zestril 40 mg (*)] 40 mg PO DAILY 07/04/16 [Last Taken 07/03/16] Multivitamins [Multivitamin (*)] 1 each PO DAILY 07/04/16 [Last Taken 07/03/16] amLODIPine BESYLATE [Amlodipine Besylate] 10 mg PO DAILY 07/04/16 [Last Taken ] Chlorhexidine Gluconate [Perisol] 15 ml MM TID #437 mouthwash 07/05/16 [Last Taken Unknown] Sodium Cl Nasal [[place] (*)] 3 spray EACHNARE TID PRN #1 btl 07/05/16 [ Last Taken Unknown] Mathematics Teacher Antibiotics: Ertapenem 1 g IV Q 24 hours Mathematics Teacher Antibiotic Stop Date: 08/15/16 Discharge Medications: Refer to the Discharge Home Medication list for PRN reason. PICC Care - Routine: Yes - Orders Diet Recommendation: other - Labs/Radiology CBC Date: 07/12/16 (Weekly Q ) CMP Date: 07/12/16 (Weekly Q ) Call or Fax Lab and Imaging Results to: Dr. Pascual, - Follow Up Care Current Providers and Referrals: Anthony Patricia MD [Primary Care Provider] - Amy Higuera MD [Medical Doctor] - follow up in 2 weeks
[2016-07-07] MEDS ORDERED: ERTAPENEM 1 GM in NS 100 ML IV SCH (11:00)
--- NOTE | 2016-07-07 12:06 | PDIAF ---
- Diagnosis Diagnosis: Facial abscess/mandibular hardware infection Code Status: Full Code - Medication Management Discharge Medications: Medications to Continue on Transfer Lisinopril [Zestril 40 mg (*)] 40 mg PO DAILY 07/04/16 [Last Taken 07/03/16] Multivitamins [Multivitamin (*)] 1 each PO DAILY 07/04/16 [Last Taken 07/03/16] amLODIPine BESYLATE [Amlodipine Besylate] 10 mg PO DAILY 07/04/16 [Last Taken ] Chlorhexidine Gluconate [Perisol] 15 ml MM TID #437 mouthwash 07/05/16 [Last Taken Unknown] Sodium Cl Nasal [[place] (*)] 3 spray EACHNARE TID PRN #1 btl 07/05/16 [ Last Taken Unknown] Ertapenem [[employer]] 1 gm IV DAILY #0 vial 07/07/16 [Last Taken Unknown] Fluticasone Nasal [Flonase Nasal [place]] 2 sprays EACHNARE DAILY #1 btl 07/07/16 [Last Taken Unknown] Senior [facility] Antibiotics: Ertapenem 1 g IV Q 24 hours Senior [facility] Antibiotic Stop Date: 08/15/16 Discharge Medications: Refer to the Discharge Home Medication list for PRN reason. PICC Care - Routine: Yes - Orders Services needed: Home Care, Registered Nurse Home Care Face to Face: I certify that this patient was under my care and that I had the required [id number] encounter meeting the encounter requirements on the discharge day. My findings support the fact that the patient is homebound as defined in CMS Chapter 7 Medicare Benefits Manual 30.1.1, The condition of the patient is such that there exists a normal inability to leave home and consequently, leaving home would require a considerable and taxing effort. Diet Recommendation: no restrictions on diet, other Diet Texture: Dysphagia 3 - Advanced - Moist, Bite-Size, None - Labs/Radiology CBC Date: 07/12/16 (Weekly Q ) CMP Date: 07/12/16 (Weekly Q ) Call or Fax Lab and Imaging Results to: Dr. Pascual, - Follow Up Care Current Providers and Referrals: Anthony Patricia MD [Primary Care Provider] - Amy Higuera MD [Medical Doctor] - follow up in 2 weeks
--- NOTE | 2016-07-07 12:30 | GDS ---
[f rep st] DISCHARGE SUMMARY DISCHARGE DIAGNOSES: 1. Right facial abscess with communication to indwelling hardware, status post I and D and hardware removal. 2. Leukocytosis. 3. Acute facial pain. 4. Alcohol abuse. 5. Normocytic anemia. 6. Tobacco abuse. CONSULTATIONS: Infectious Disease and ENT. PROCEDURES: On 07/04/2016, large abscess pocket drained, loose hardware (4 screws and 1 plate) removed. HISTORY OF PRESENT ILLNESS: The patient is a 65-year-old male with a history of right zygomatic fracture that occurred 6 years ago, requiring hardware placement. He presented with several days of swelling of the right side of his face that was tender and warm. He also noted increased redness. He was unable to open his mouth fully or eat regularly. Reported chills and sweats. No fevers. CT in the emergency room revealed a right-sided facial abscess. Patient underwent I and D and removal of hardware per ENT. HOSPITAL COURSE: 1. Right facial abscess: Status post I and D and hardware removal, 07/04, by Dr. Higuera. Cultures grew Strep intermedius. Initially treated with vancomycin and Unasyn. Appreciate ID consultation. Now on Ertapenem to be continued through 08/15/2016. Continue Peridex mouthwash t.i.d., nasal spray daily, and a soft diet for 2 weeks. Follow up with Dr. Higuera and Dr. Pascual. 2. Acute facial pain: secondary to acute abscess: Much improved with treatment of infection. 3. Alcohol abuse: I advised patient for alcohol cessation as this probably contributed to his infection. 4. Tobacco abuse: Provided nicotine patch here but declined at discharge. 5. Leukocytosis: Again, secondary to facial abscess. This resolved with I and D and IV antibiotics. DISPOSITION: Patient is stable for discharge. MEDICATIONS: New medication: Ertapenem through 08/15/2016. FOLLOWUP: 1. Dr. Higuera. 2. Dr. Pascual. /[id number]/MODL MTDD
[2016-07-07 13:52] VITALS: BP 131/83; PULSE 78; O2SAT 95
== END 2016-07-07 15:06 | disposition home health service (06) | DRG 496 ==
LOC: F1N 16:54
PROVIDERS: ADMIT Internal Medicine; ATTEND Internal Medicine
PROC: 0NPW04Z Removal of Internal Fixation Device from Facial Bone, Open Approach (ICD-10-PCS; principal; 2016-07-04 13:45)
PROC: 0J910ZZ Drainage of Face Subcutaneous Tissue and Fascia, Open Approach (ICD-10-PCS; principal; 2016-07-04 13:45)
PROC: 02HV33Z Insertion of Infusion Device into Superior Vena Cava, Percutaneous Approach (ICD-10-PCS; 2016-07-06)
DX: T84.69XA Infection and inflammatory reaction due to internal fixation device of other site, initial encounter (principal); L03.211 Cellulitis of face; L02.01 Cutaneous abscess of face; T84.228A Displacement of internal fixation device of other bones, initial encounter; F10.10 Alcohol abuse, uncomplicated; J44.9 Chronic obstructive pulmonary disease, unspecified; D64.9 Anemia, unspecified; I10 Essential (primary) hypertension; B19.20 Unspecified viral hepatitis C without hepatic coma; Z72.0 Tobacco use; Z59.0 Homelessness
CPT/HCPCS: 82947-QW; 96365; 97165-GO; C1751; J0295; J0330; J1100; J1335; J1650; J2060; J2250; J2370; J2704; J3010; J3370; Q9967